=== PATIENT | female | born 2000 ===

== ENCOUNTER → 2024-06-14 09:00 | Outpatient (BNV) | payer OTHER, SELFPAY | PROVIDERS: Visit Provider Internal Medicine | DX: R00.0 Tachycardia, unspecified (principal) | CPT/HCPCS: 93244 ==

== ENCOUNTER → 2024-06-14 11:30 | Outpatient (REF) | payer OTHER, SELFPAY ==
--- NOTE | 2024-06-14 | HM_ITS ---
* Total monitoring time 7 days. * Underlying rhythm is sinus with an average rate of 78/Min. * Very rare ventricular ectopy. * No significant pauses or high-grade AV blocks. * Patient marker used 56 times without any arrhythmia or ectopy. * Diary entries include chest tightness, pressure, fluttering, palpitations, dizziness, syncope. Associated with sinus rhythm and sinus tachycardia. MTDD
== END ==
LOC: HO.CARD 11:30
PROVIDERS: Visit Provider Family Medicine
DX: R42 Dizziness and giddiness (principal)
CPT/HCPCS: 93242